=== PATIENT | male | born 2000 | race Two or more races ===

== ENCOUNTER 2023-08-25 05:06 | Emergency (ER) | payer SELFPAY ==
[~2023-08-25] VITALS: Ht 177.8 cm; Wt 59.0 kg
[2023-08-25 05:11] VITALS: O2SAT 97
[2023-08-25 08:45] VITALS: TEMP 97.7
[2023-08-25 08:45] LABS: BASOPHILS % 0.3 % (0.0-2.0); EOSINOPHILS % 0.2 % (0.0-5.0); HEMATOCRIT. 45.6 % (42.0-52.0); HEMOGLOBIN. 15.2 g/dL (14.0-18.0); LYMPHOCYTES % 23.1 % (20.0-50.0); MEAN CORPUSCULAR HEMOGLOBIN 28.4 pg (28.0-32.0); MEAN CORPUSCULAR HGB CONC 33.4 g/dL (31.0-37.0); MEAN CORPUSCULAR VOLUME 85.1 fL (80.0-94.0); MEAN PLATELET VOLUME 8.2 fl (7.4-10.4); MONOCYTES % 6.6 % (2.0-8.0); NEUTROPHILS % 69.8 % (40.0-76.0); PLATELET 265 x1000/uL (130-400); RED BLOOD CELL COUNT 5.35 mill/uL (4.7-6.1); RED CELL DISTRIBUTION WIDTH 14.2 % (11.6-14.6); WHITE BLOOD COUNT 8.2 x1000/uL (4.5-11.0)
[2023-08-25] MEDS: LORAZEPAM 1MG TABLET PO NR (09:00)
[2023-08-25] MEDS: OLANZAPINE 5MG TABLET ODT PO SCH (09:00)
[2023-08-25 09:07] LABS: ALANINE AMINOTRANSFERASE 16 IU/L (10-49); ASPARTATE AMINOTRANSFERASE 21 IU/L (<34); BILIRUBIN TOTAL 0.9 mg/dL (0.1-1.0); CALCIUM 9.8 mg/dL (8.7-10.4); CARBON DIOXIDE 24 mEq/L (21-32); CHLORIDE 105 mEq/L (98-107); CREATININE 0.8 mg/dL (0.6-1.3); GLUCOSE 97 mg/dL (70-105); POTASSIUM 3.8 mEq/L (3.5-5.1); SODIUM 139 mEq/L (136-145); THYROID STIMULATING HORMONE 0.78 uIU/mL (0.55-4.78); UREA NITROGEN BLOOD 10 mg/dL (9-23)
[2023-08-25 09:12] LABS: ETHANOL BLOOD < 10 mg/dL (<10)
[2023-08-25 09:15] LABS: CLARITY URINE CLEAR (CLEAR); COLOR URINE DARK YELLOW (YELLOW); GLUCOSE URINE NEGATIVE (NEGATIVE); KETONES URINE 3+ (NEGATIVE); LEUKOCYTE ESTERASE URINE NEGATIVE (NEGATIVE); NITRITE URINE NEGATIVE (NEGATIVE); OCCULT BLOOD URINE NEGATIVE (NEGATIVE); PROTEIN URINE TRACE (NEGATIVE)
[2023-08-25 09:34] LABS: WBC URINE 0-2 /hpf (0-2)
[2023-08-25 09:35] LABS: BACTERIA URINE FEW; RBC URINE NONE SEEN /hpf (0-2); SQUAMOUS EPITHELIAL CELL URINE RARE /lpf (RARE/1+); YEAST URINE NONE SEEN
[2023-08-25 09:37] LABS: MUCUS URINE 2+ /lpf (NONE/TRACE)
[2023-08-25 10:12] LABS: *AMPHETAMINES SCREEN URINE NEGATIVE (NEGATIVE); *BARBITURATES SCREEN URINE NEGATIVE (NEGATIVE); *BENZODIAZEPINES SCREEN URINE NEGATIVE (NEGATIVE); *COCAINE SCREEN URINE NEGATIVE (NEGATIVE); CANNABINOID URINE SCREEN PRESUMPTIVE POSITIVE (NEGATIVE); ECSTASY MDMA SCREEN URINE NEGATIVE (NEGATIVE); METHADONE URINE SCREEN Neg (NEGATIVE); OPIATES URINE SCREEN NEGATIVE (NEGATIVE); PHENCYCLIDINE URINE SCREEN NEGATIVE (NEGATIVE)
[2023-08-25 18:45] VITALS: BP 119/71; PULSE 86
[2023-08-25 19:00] VITALS: RESP 16
== END 2023-08-25 21:46 | disposition home or self-care (01) ==
LOC: ER 05:06
DX: R45.851 Suicidal ideations (principal); F41.9 Anxiety disorder, unspecified; Z20.822 Contact with and (suspected) exposure to COVID-19
CPT/HCPCS: 36415; 80053; 80305; 80320; 81003; 84443; 85025; 87426; 99285; G0480

== ENCOUNTER 2023-09-12 17:32 | Emergency (ER) | payer SELFPAY ==
[~2023-09-12] VITALS: Ht 180.3 cm; Wt 74.8 kg
[2023-09-12 18:03] VITALS: O2SAT 97
[2023-09-12] MEDS ORDERED: ALPRAZOLAM 0.5 MG TABLET PO ONE (22:00)
[2023-09-12] MEDS: ALPRAZOLAM 0.25 MG TABLET PO NR (22:52)
[2023-09-12] MEDS: DIPHENHYDRAMINE 50MG/ML VIAL IV ONE (23:30)
[2023-09-12] MEDS: ZIPRASIDONE MESYLATE 20MG/VIAL IM ONE (23:38)
[2023-09-12] MEDS: DIPHENHYDRAMINE 50MG/ML VIAL IM ONE (23:38)
[2023-09-13 01:25] LABS: BASOPHILS % 0.2 % (0.0-2.0); EOSINOPHILS % 0.5 % (0.0-5.0); HEMATOCRIT. 41.9 % (42.0-52.0); HEMOGLOBIN. 14.3 g/dL (14.0-18.0); MEAN CORPUSCULAR HEMOGLOBIN 29.1 pg (28.0-32.0); MEAN CORPUSCULAR HGB CONC 34.1 g/dL (31.0-37.0); MEAN CORPUSCULAR VOLUME 85.4 fL (80.0-94.0); MEAN PLATELET VOLUME 7.8 fl (7.4-10.4); MONOCYTES % 9.8 % (2.0-8.0); NEUTROPHILS % 72.5 % (40.0-76.0); PLATELET 210 x1000/uL (130-400); RED BLOOD CELL COUNT 4.91 mill/uL (4.7-6.1); RED CELL DISTRIBUTION WIDTH 14.3 % (11.6-14.6); WHITE BLOOD COUNT 14.1 x1000/uL (4.5-11.0)
[2023-09-13 01:46] LABS: CALCIUM 9.3 mg/dL (8.7-10.4); CARBON DIOXIDE 29 mEq/L (21-32); CHLORIDE 107 mEq/L (98-107); CREATININE 0.8 mg/dL (0.6-1.3); GLUCOSE 94 mg/dL (70-105); POTASSIUM 3.9 mEq/L (3.5-5.1); SODIUM 143 mEq/L (136-145); UREA NITROGEN BLOOD 16 mg/dL (9-23)
[2023-09-13 02:19] LABS: ETHANOL BLOOD < 10 mg/dL (<10)
[2023-09-13 02:41] LABS: *AMPHETAMINES SCREEN URINE NEGATIVE (NEGATIVE); *BARBITURATES SCREEN URINE NEGATIVE (NEGATIVE); *BENZODIAZEPINES SCREEN URINE NEGATIVE (NEGATIVE); *COCAINE SCREEN URINE NEGATIVE (NEGATIVE); CANNABINOID URINE SCREEN PRESUMPTIVE POSITIVE (NEGATIVE); ECSTASY MDMA SCREEN URINE NEGATIVE (NEGATIVE); METHADONE URINE SCREEN Neg (NEGATIVE); OPIATES URINE SCREEN NEGATIVE (NEGATIVE); PHENCYCLIDINE URINE SCREEN NEGATIVE (NEGATIVE)
[2023-09-13 06:13] VITALS: TEMP 97.6
[2023-09-13] MEDS: LORAZEPAM 1MG TABLET PO ONE (06:13)
[2023-09-13 11:00] VITALS: BP 141/75; PULSE 74; RESP 18
[2023-09-13] MEDS ORDERED: GABA-532 MT (11:28)
== END 2023-09-13 11:42 | disposition home or self-care (01) ==
LOC: ER 17:32
DX: F12.10 Cannabis abuse, uncomplicated (principal); F41.0 Panic disorder [episodic paroxysmal anxiety]; R45.1 Restlessness and agitation; J45.909 Unspecified asthma, uncomplicated; Z20.822 Contact with and (suspected) exposure to COVID-19
CPT/HCPCS: 36415; 96372; 99285; 80305; 80048; 80320; 85025; 87426; J1200; J3486; Z7610; G0480

== ENCOUNTER 2023-09-16 08:34 | Emergency (ER) | payer SELFPAY ==
[~2023-09-16] VITALS: Ht 177.8 cm; Wt 74.5 kg
[~2023-09-16 08:34] MED LIST: GABA-532 MT
[2023-09-16 08:43] VITALS: BP 150/99; PULSE 98; RESP 16; TEMP 98.2; O2SAT 100
[2023-09-16 10:15] LABS: CLARITY URINE CLEAR (CLEAR); COLOR URINE YELLOW (YELLOW); GLUCOSE URINE NEGATIVE (NEGATIVE); KETONES URINE TRACE (NEGATIVE); LEUKOCYTE ESTERASE URINE NEGATIVE (NEGATIVE); NITRITE URINE NEGATIVE (NEGATIVE); OCCULT BLOOD URINE NEGATIVE (NEGATIVE); PROTEIN URINE NEGATIVE (NEGATIVE)
== END 2023-09-16 15:17 | disposition left against medical advice (07) ==
LOC: ER 08:34
DX: R07.89 Other chest pain (principal); F41.9 Anxiety disorder, unspecified; J45.909 Unspecified asthma, uncomplicated; F12.10 Cannabis abuse, uncomplicated
CPT/HCPCS: 71045; 81003; 93005; 99285

== ENCOUNTER 2023-09-17 02:35 | Emergency (ER) | payer SELFPAY ==
[~2023-09-17] VITALS: Ht 177.8 cm; Wt 74.0 kg
[2023-09-17 03:04] VITALS: O2SAT 97
[2023-09-17 03:50] LABS: BASOPHILS % 0.2 % (0.0-2.0); EOSINOPHILS % 3.9 % (0.0-5.0); HEMATOCRIT. 39.3 % (42.0-52.0); HEMOGLOBIN. 13.5 g/dL (14.0-18.0); LYMPHOCYTES % 24.3 % (20.0-50.0); MEAN CORPUSCULAR HGB CONC 34.3 g/dL (31.0-37.0); MEAN CORPUSCULAR VOLUME 84.5 fL (80.0-94.0); MONOCYTES % 16.3 % (2.0-8.0); NEUTROPHILS % 55.3 % (40.0-76.0); PLATELET 219 x1000/uL (130-400); RED BLOOD CELL COUNT 4.65 mill/uL (4.7-6.1); RED CELL DISTRIBUTION WIDTH 14.4 % (11.6-14.6); WHITE BLOOD COUNT 6.9 x1000/uL (4.5-11.0)
[2023-09-17 03:51] LABS: CLARITY URINE CLEAR (CLEAR); COLOR URINE YELLOW (YELLOW); GLUCOSE URINE NEGATIVE (NEGATIVE); KETONES URINE NEGATIVE (NEGATIVE); LEUKOCYTE ESTERASE URINE NEGATIVE (NEGATIVE); NITRITE URINE NEGATIVE (NEGATIVE); OCCULT BLOOD URINE NEGATIVE (NEGATIVE); PROTEIN URINE NEGATIVE (NEGATIVE); SPECIFIC GRAVITY URINE 1.018 (1.005-1.030)
[2023-09-17 04:00] LABS: *AMPHETAMINES SCREEN URINE NEGATIVE (NEGATIVE); *BARBITURATES SCREEN URINE NEGATIVE (NEGATIVE); *BENZODIAZEPINES SCREEN URINE NEGATIVE (NEGATIVE); *COCAINE SCREEN URINE NEGATIVE (NEGATIVE); CANNABINOID URINE SCREEN PRESUMPTIVE POSITIVE (NEGATIVE); ECSTASY MDMA SCREEN URINE NEGATIVE (NEGATIVE); METHADONE URINE SCREEN Neg (NEGATIVE); OPIATES URINE SCREEN NEGATIVE (NEGATIVE); PHENCYCLIDINE URINE SCREEN NEGATIVE (NEGATIVE)
[2023-09-17 04:05] LABS: DIFFERENTIAL COMMENT 1
[2023-09-17 04:12] LABS: ACETAMINOPHEN < 2 ug/mL (10-30); ALANINE AMINOTRANSFERASE 24 IU/L (10-49); ALBUMIN 4.6 g/dL (3.2-4.8); ASPARTATE AMINOTRANSFERASE 25 IU/L (<34); BILIRUBIN TOTAL 0.3 mg/dL (0.1-1.0); CALCIUM 9.1 mg/dL (8.7-10.4); CARBON DIOXIDE 27 mEq/L (21-32); CHLORIDE 108 mEq/L (98-107); CREATININE 0.7 mg/dL (0.6-1.3); GLUCOSE 96 mg/dL (70-105); POTASSIUM 3.5 mEq/L (3.5-5.1); PROTEIN TOTAL 7.6 g/dL (6.0-8.3); SODIUM 140 mEq/L (136-145); UREA NITROGEN BLOOD 10 mg/dL (9-23)
[2023-09-17 04:14] LABS: ETHANOL BLOOD < 10 mg/dL (<10)
[2023-09-17] MEDS: LORAZEPAM 1MG TABLET PO ONE (13:00)
[2023-09-17] MEDS: GABAPENTIN 100MG CAPSULE PO SCH (14:00)
[2023-09-18] MEDS ORDERED: DIPHENHYDRAMINE 50MG/ML VIAL IM PRN (20:30)
[2023-09-18] MEDS: LORAZEPAM 2MG/ML INJ IM ONE (20:36)
[2023-09-19] MEDS: DIVALPROEX SODIUM 250MG DR TABLET PO SCH (09:45)
[2023-09-19 17:18] VITALS: BP 94/62; PULSE 98; RESP 17; TEMP 98
== END 2023-09-19 18:11 ==
LOC: ER 02:35
DX: R45.851 Suicidal ideations (principal); F41.9 Anxiety disorder, unspecified; J45.909 Unspecified asthma, uncomplicated; I10 Essential (primary) hypertension; F17.200 Nicotine dependence, unspecified, uncomplicated; Z88.8 Allergy status to other drugs, medicaments and biological substances; Z20.822 Contact with and (suspected) exposure to COVID-19
CPT/HCPCS: 36415; 80053; 80305; 80307; 80320; 80329; 81003; 85025; 87426; 99285; G0480

== ENCOUNTER 2023-12-28 03:07 | Emergency (ER) | payer MEDICAID ==
[~2023-12-28] VITALS: Ht 172.7 cm; Wt 72.0 kg
[2023-12-28 03:18] VITALS: BP 164/108; PULSE 86; RESP 18; TEMP 98.6; O2SAT 98
[2023-12-28] MEDS ORDERED: LORA-250 MT (16:05)
== END 2023-12-28 05:00 | disposition left against medical advice (07) ==
LOC: ER 03:07
DX: F41.9 Anxiety disorder, unspecified (principal); Z53.21 Procedure and treatment not carried out due to patient leaving prior to being seen by health care provider

== ENCOUNTER 2023-12-28 10:03 | Emergency (ER) | payer MEDICAID ==
[~2023-12-28] VITALS: Ht 177.8 cm; Wt 73.0 kg
[2023-12-28 10:13] VITALS: BP 136/75; PULSE 77; RESP 16; TEMP 98.7; O2SAT 98
[2023-12-28] MEDS ORDERED: LORAZEPAM 2MG/ML INJ IV ONE (11:45)
[2023-12-28] MEDS ORDERED: SODIUM CHLORIDE 0.9% 1,000 ML IV ONE (11:45)
[2023-12-28] MEDS ORDERED: LORA-250 MT (16:05)
== END 2023-12-28 12:04 | disposition left against medical advice (07) ==
LOC: ER 10:03
DX: F41.9 Anxiety disorder, unspecified (principal); J45.909 Unspecified asthma, uncomplicated; F32.A Depression, unspecified; I10 Essential (primary) hypertension; F12.90 Cannabis use, unspecified, uncomplicated; Z88.8 Allergy status to other drugs, medicaments and biological substances
CPT/HCPCS: 99281; J7030

== ENCOUNTER 2023-12-28 12:31 | Emergency (ER) | payer MEDICAID ==
[~2023-12-28] VITALS: Ht 177.8 cm; Wt 57.0 kg
[2023-12-28 12:54] VITALS: O2SAT 100
[2023-12-28] MEDS: SODIUM CHLORIDE 0.9% 1,000 ML IV ONE (13:15)
[2023-12-28] MEDS: LORAZEPAM 2MG/ML INJ IV ONE (13:15)
[2023-12-28 14:25] LABS: BASOPHILS % 0.2 % (0.0-2.0); HEMATOCRIT. 42.6 % (42.0-52.0); HEMOGLOBIN. 14.2 g/dL (14.0-18.0); LYMPHOCYTES % 17.1 % (20.0-50.0); MEAN CORPUSCULAR HEMOGLOBIN 28.5 pg (28.0-32.0); MEAN CORPUSCULAR HGB CONC 33.4 g/dL (31.0-37.0); MEAN CORPUSCULAR VOLUME 85.3 fL (80.0-94.0); MEAN PLATELET VOLUME 7.9 fl (7.4-10.4); MONOCYTES % 6.2 % (2.0-8.0); NEUTROPHILS % 75.5 % (40.0-76.0); PLATELET 329 x1000/uL (130-400); RED BLOOD CELL COUNT 4.99 mill/uL (4.7-6.1); RED CELL DISTRIBUTION WIDTH 13.6 % (11.6-14.6); WHITE BLOOD COUNT 11.5 x1000/uL (4.5-11.0)
[2023-12-28 14:46] LABS: CHLORIDE 104 mEq/L (98-107); POTASSIUM 3.5 mEq/L (3.5-5.1); SODIUM 137 mEq/L (136-145)
[2023-12-28 14:48] LABS: CALCIUM 10.2 mg/dL (8.7-10.4); CARBON DIOXIDE 19 mEq/L (21-32)
[2023-12-28 14:53] LABS: CREATININE 0.9 mg/dL (0.6-1.3); GLUCOSE 90 mg/dL (70-105); UREA NITROGEN BLOOD 15 mg/dL (9-23)
[2023-12-28 14:55] LABS: ALANINE AMINOTRANSFERASE 150 IU/L (10-49); ALBUMIN 5.2 g/dL (3.2-4.8); ASPARTATE AMINOTRANSFERASE 50 IU/L (<34); BILIRUBIN DIRECT 0.3 mg/dL (<=3.0)
[2023-12-28 14:56] LABS: BILIRUBIN TOTAL 0.8 mg/dL (0.1-1.0); ETHANOL BLOOD < 10 mg/dL (<10); PROTEIN TOTAL 8.6 g/dL (6.0-8.3)
[2023-12-28] MEDS ORDERED: LORA-250 MT (16:05)
[2023-12-28 16:58] VITALS: BP 124/78; PULSE 76; RESP 16; TEMP 98.4
[2023-12-28 17:10] LABS: CLARITY URINE CLEAR (CLEAR); COLOR URINE DARK YELLOW (YELLOW); GLUCOSE URINE NEGATIVE (NEGATIVE); KETONES URINE 4+ (NEGATIVE); LEUKOCYTE ESTERASE URINE TRACE (NEGATIVE); NITRITE URINE NEGATIVE (NEGATIVE); OCCULT BLOOD URINE NEGATIVE (NEGATIVE); PH URINE 6.5 (4.5-8.0); PROTEIN URINE 1+ (NEGATIVE); SPECIFIC GRAVITY URINE 1.038 (1.005-1.030)
[2023-12-28 17:24] LABS: BACTERIA URINE 1+; RBC URINE NONE SEEN /hpf (0-2); SQUAMOUS EPITHELIAL CELL URINE RARE /lpf (RARE/1+)
[2023-12-28 17:25] LABS: *AMPHETAMINES SCREEN URINE NEGATIVE (NEGATIVE); *BARBITURATES SCREEN URINE NEGATIVE (NEGATIVE); *BENZODIAZEPINES SCREEN URINE NEGATIVE (NEGATIVE); *COCAINE SCREEN URINE NEGATIVE (NEGATIVE); CANNABINOID URINE SCREEN PRESUMPTIVE POSITIVE (NEGATIVE); ECSTASY MDMA SCREEN URINE NEGATIVE (NEGATIVE); METHADONE URINE SCREEN NEGATIVE (NEGATIVE); OPIATES URINE SCREEN NEGATIVE (NEGATIVE); PHENCYCLIDINE URINE SCREEN NEGATIVE (NEGATIVE); WBC URINE 0-2 /hpf (0-2)
== END 2023-12-28 18:07 | disposition home or self-care (01) ==
LOC: ER 12:31
DX: F41.0 Panic disorder [episodic paroxysmal anxiety] (principal); J45.909 Unspecified asthma, uncomplicated; I10 Essential (primary) hypertension; F12.90 Cannabis use, unspecified, uncomplicated; F32.A Depression, unspecified; Z88.8 Allergy status to other drugs, medicaments and biological substances
CPT/HCPCS: 80076; 80305; 80048; 81003; 80320; 85025; 36415; 96361; 96374; 99283; J2060; J7030; Z7610 ×4; G0480

== ENCOUNTER 2023-12-30 16:19 | Emergency (ER) | payer MEDICAID ==
[~2023-12-30] VITALS: Ht 177.8 cm; Wt 75.0 kg
[~2023-12-30 16:19] MED LIST changes: +LORA-250 MT
[2023-12-30 16:22] VITALS: BP 139/90; PULSE 84; RESP 18; TEMP 98.7; O2SAT 100
== END 2023-12-30 17:08 | disposition left against medical advice (07) ==
LOC: ER 16:19
DX: R45.851 Suicidal ideations (principal); Z53.21 Procedure and treatment not carried out due to patient leaving prior to being seen by health care provider

== ENCOUNTER 2023-12-30 20:24 | Emergency (ER) | payer MEDICAID ==
[~2023-12-30] VITALS: Ht 177.8 cm; Wt 75.0 kg
[2023-12-30] MEDS: LORAZEPAM 1MG TABLET PO ONE (21:30)
[2023-12-30 21:50] LABS: BASOPHILS % 0.3 % (0.0-2.0); EOSINOPHILS % 0.2 % (0.0-5.0); HEMATOCRIT. 40.2 % (42.0-52.0); HEMOGLOBIN. 13.6 g/dL (14.0-18.0); LYMPHOCYTES % 14.8 % (20.0-50.0); MEAN CORPUSCULAR HGB CONC 33.8 g/dL (31.0-37.0); MEAN CORPUSCULAR VOLUME 85.9 fL (80.0-94.0); MEAN PLATELET VOLUME 8.3 fl (7.4-10.4); MONOCYTES % 6.6 % (2.0-8.0); NEUTROPHILS % 78.1 % (40.0-76.0); PLATELET 300 x1000/uL (130-400); RED BLOOD CELL COUNT 4.68 mill/uL (4.7-6.1); RED CELL DISTRIBUTION WIDTH 13.4 % (11.6-14.6); WHITE BLOOD COUNT 16.1 x1000/uL (4.5-11.0)
[2023-12-30 21:56] LABS: CHLORIDE 107 mEq/L (98-107); POTASSIUM 3.2 mEq/L (3.5-5.1); SODIUM 141 mEq/L (136-145)
[2023-12-30 21:57] LABS: CARBON DIOXIDE 18 mEq/L (21-32)
[2023-12-30 21:58] LABS: CALCIUM 9.6 mg/dL (8.7-10.4)
[2023-12-30 22:02] LABS: CREATININE 0.9 mg/dL (0.6-1.3); GLUCOSE 82 mg/dL (70-105); UREA NITROGEN BLOOD 12 mg/dL (9-23)
[2023-12-30 22:05] LABS: ETHANOL BLOOD < 10 mg/dL (<10)
[2023-12-30 23:32] LABS: ALANINE AMINOTRANSFERASE 75 IU/L (10-49); ASPARTATE AMINOTRANSFERASE 23 IU/L (<34)
[2023-12-30 23:33] LABS: ALBUMIN 4.7 g/dL (3.2-4.8); BILIRUBIN DIRECT 0.2 mg/dL (<=3.0); BILIRUBIN TOTAL 0.6 mg/dL (0.1-1.0); PROTEIN TOTAL 7.5 g/dL (6.0-8.3)
[2023-12-31] MEDS: HALOPERIDOL LACTATE 5MG/ML VIAL IM ONE
[2023-12-31] MEDS: SODIUM CHLORIDE 0.9% 1,000 ML IV ONE (00:45)
[2023-12-31] MEDS: DIPHENHYDRAMINE 50MG/ML VIAL IM ONE (00:45)
[2023-12-31] MEDS: LORAZEPAM 2MG/ML INJ IM ONE ×2 (00:45)
[2023-12-31 01:10] VITALS: O2SAT 100
[2023-12-31 01:30] LABS: CLARITY URINE CLEAR (CLEAR); COLOR URINE YELLOW (YELLOW); GLUCOSE URINE NEGATIVE (NEGATIVE); KETONES URINE 4+ (NEGATIVE); LEUKOCYTE ESTERASE URINE NEGATIVE (NEGATIVE); NITRITE URINE NEGATIVE (NEGATIVE); OCCULT BLOOD URINE NEGATIVE (NEGATIVE); PH URINE 5.5 (4.5-8.0); PROTEIN URINE 1+ (NEGATIVE)
[2023-12-31 01:42] LABS: *AMPHETAMINES SCREEN URINE NEGATIVE (NEGATIVE); *BARBITURATES SCREEN URINE NEGATIVE (NEGATIVE); *BENZODIAZEPINES SCREEN URINE NEGATIVE (NEGATIVE); *COCAINE SCREEN URINE NEGATIVE (NEGATIVE); ECSTASY MDMA SCREEN URINE NEGATIVE (NEGATIVE); METHADONE URINE SCREEN NEGATIVE (NEGATIVE); OPIATES URINE SCREEN NEGATIVE (NEGATIVE); PHENCYCLIDINE URINE SCREEN NEGATIVE (NEGATIVE)
[2023-12-31 04:40] LABS: BACTERIA URINE TRACE; MUCUS URINE 3+ /lpf (NONE/TRACE); RBC URINE 0-2 /hpf (0-2); SQUAMOUS EPITHELIAL CELL URINE 1+ /lpf (RARE/1+); WBC URINE 0-2 /hpf (0-2)
[2023-12-31] MEDS: POTASSIUM CHLORIDE 20MEQ TABLET SR PO NR (06:26)
[2023-12-31] MEDS: QUETIAPINE FUMARATE 50MG TABLET PO SCH (14:19)
[2024-01-01] MEDS: LORAZEPAM 2MG/ML INJ IM ONE (11:23)
[2024-01-01] MEDS: HALOPERIDOL LACTATE 5MG/ML VIAL IM ONE (11:24)
[2024-01-02] MEDS ORDERED: LORAZEPAM 1MG TABLET PO ONE (17:45)
[2024-01-02] MEDS ORDERED: LORAZEPAM 1MG TABLET PO NR (19:30)
[2024-01-02 20:41] VITALS: BP 144/77; PULSE 98; RESP 20; TEMP 98
== END 2024-01-02 23:10 ==
LOC: ER 20:24
DX: R45.851 Suicidal ideations (principal); F12.10 Cannabis abuse, uncomplicated; I10 Essential (primary) hypertension; J45.909 Unspecified asthma, uncomplicated; Z20.822 Contact with and (suspected) exposure to COVID-19; Z88.8 Allergy status to other drugs, medicaments and biological substances
CPT/HCPCS: 80076; 80305; 80048; 81003; 80320; 85025; 36415; 71045; 99285; 87426; 96360; 96372 ×2; Z7610 ×3; J1200; J1630 ×2; J2060 ×2; J7030; G0480

== ENCOUNTER 2024-01-10 09:18 | Emergency (ER) | payer MEDICAID, OTHER ==
[~2024-01-10] VITALS: Ht 177.8 cm; Wt 66.0 kg
[2024-01-10 09:29] VITALS: BP 117/75; PULSE 100; RESP 18; TEMP 98.1; O2SAT 97
[2024-01-10] MEDS ORDERED: MIRT7.5T11 MT (09:45)
[2024-01-10] MEDS ORDERED: HYDR50TA55 MT (09:45)
[2024-01-10] MEDS: LORAZEPAM 1MG TABLET PO ONE (10:10)
== END 2024-01-10 10:22 | disposition home or self-care (01) ==
LOC: ER 09:56
DX: F41.9 Anxiety disorder, unspecified (principal); R45.851 Suicidal ideations; J45.909 Unspecified asthma, uncomplicated; F31.9 Bipolar disorder, unspecified; Z79.899 Other long term (current) drug therapy
CPT/HCPCS: 99283

== ENCOUNTER 2024-03-03 10:21 | Emergency (ER) | payer MEDICAID ==
[~2024-03-03] VITALS: Ht 177.8 cm; Wt 77.0 kg
[~2024-03-03 10:21] MED LIST changes: +HYDR50TA55 MT; +MIRT7.5T11 MT
[2024-03-03 10:34] VITALS: O2SAT 97
[2024-03-03 11:08] LABS: CLARITY URINE CLEAR (CLEAR); COLOR URINE YELLOW (YELLOW); GLUCOSE URINE NEGATIVE (NEGATIVE); KETONES URINE TRACE (NEGATIVE); LEUKOCYTE ESTERASE URINE NEGATIVE (NEGATIVE); NITRITE URINE NEGATIVE (NEGATIVE); OCCULT BLOOD URINE NEGATIVE (NEGATIVE); PROTEIN URINE NEGATIVE (NEGATIVE); SPECIFIC GRAVITY URINE 1.026 (1.005-1.030); UROBILINOGEN URINE 0.2 E.U./dL (0.2-1.0)
[2024-03-03] MEDS: KETOROLAC 30MG/ML VIAL IM STA (11:25)
[2024-03-03 11:26] LABS: *AMPHETAMINES SCREEN URINE NEGATIVE (NEGATIVE); *BARBITURATES SCREEN URINE NEGATIVE (NEGATIVE); *BENZODIAZEPINES SCREEN URINE NEGATIVE (NEGATIVE); *COCAINE SCREEN URINE NEGATIVE (NEGATIVE); CANNABINOID URINE SCREEN PRESUMPTIVE POSITIVE (NEGATIVE); ECSTASY MDMA SCREEN URINE NEGATIVE (NEGATIVE); METHADONE URINE SCREEN NEGATIVE (NEGATIVE); OPIATES URINE SCREEN NEGATIVE (NEGATIVE); PHENCYCLIDINE URINE SCREEN NEGATIVE (NEGATIVE)
[2024-03-03] MEDS: TETANUS, DIPHTHERIA, PERTUSSIS VAC/PF 0.5ML (>10YR OLD) IM ONE (11:26)
[2024-03-03] MEDS: LIDOCAINE HCL 1% 20ML VIAL INFIL ONE (11:41)
[2024-03-03 11:51] LABS: BASOPHILS % 0.1 % (0.0-2.0); EOSINOPHILS % 0.2 % (0.0-5.0); HEMATOCRIT. 41.9 % (42.0-52.0); HEMOGLOBIN. 13.7 g/dL (14.0-18.0); LYMPHOCYTES % 10.5 % (20.0-50.0); MEAN CORPUSCULAR HEMOGLOBIN 27.6 pg (28.0-32.0); MEAN CORPUSCULAR HGB CONC 32.6 g/dL (31.0-37.0); MEAN CORPUSCULAR VOLUME 84.6 fL (80.0-94.0); MEAN PLATELET VOLUME 8.2 fl (7.4-10.4); MONOCYTES % 4.4 % (2.0-8.0); NEUTROPHILS % 84.8 % (40.0-76.0); PLATELET 273 x1000/uL (130-400); RED BLOOD CELL COUNT 4.95 mill/uL (4.7-6.1); RED CELL DISTRIBUTION WIDTH 13.5 % (11.6-14.6); WHITE BLOOD COUNT 11.6 x1000/uL (4.5-11.0)
[2024-03-03 11:56] LABS: CHLORIDE 109 mEq/L (98-107); POTASSIUM 3.7 mEq/L (3.5-5.1); SODIUM 139 mEq/L (136-145)
[2024-03-03 11:57] LABS: CALCIUM 9.8 mg/dL (8.7-10.4); CARBON DIOXIDE 25 mEq/L (21-32)
[2024-03-03 12:02] LABS: CREATININE 0.7 mg/dL (0.6-1.3); GLUCOSE 108 mg/dL (70-105); UREA NITROGEN BLOOD 13 mg/dL (9-23)
[2024-03-03 12:04] LABS: ACETAMINOPHEN < 2 ug/mL (10-30)
[2024-03-03 12:26] LABS: ETHANOL BLOOD < 10 mg/dL (<10)
[2024-03-03 18:58] VITALS: BP 137/75; PULSE 63; RESP 14; TEMP 36.28068; O2SAT 99
== END 2024-03-03 21:32 | disposition home or self-care (01) ==
LOC: ER 10:21
DX: S51.812A Laceration without foreign body of left forearm, initial encounter (principal); F41.9 Anxiety disorder, unspecified; J45.909 Unspecified asthma, uncomplicated; F31.9 Bipolar disorder, unspecified; Z20.822 Contact with and (suspected) exposure to COVID-19; X83.8XXA Intentional self-harm by other specified means, initial encounter; Y33.XXXA Other specified events, undetermined intent, initial encounter; Y93.89 Activity, other specified; Y92.89 Other specified places as the place of occurrence of the external cause; Y99.8 Other external cause status
CPT/HCPCS: 80305; 80048; 81003; 80307; 80329; 80320; 85025; 36415; 90715; 12002; 90471; 96372; 99285; 87426; J1885; J3490; Z7610 ×4; G0480

== ENCOUNTER 2024-06-01 21:32 | Emergency (ER) | payer MEDICAID ==
[~2024-06-01] VITALS: Ht 177.8 cm; Wt 78.1 kg
[~2024-06-01 21:32] MED LIST changes: +GABA-1180 MT; -GABA-532 MT
[2024-06-01 21:38] VITALS: O2SAT 100
[2024-06-01 21:47] VITALS: BP 146/81; PULSE 85; RESP 18; TEMP 98.6; O2SAT 98
[2024-06-01] MEDS ORDERED: LORAZEPAM 1MG TABLET PO ONE (23:15)
[2024-06-02] MEDS ORDERED: HYDR-3735 PO (00:35)
[2024-06-02] MEDS: LORAZEPAM 1MG TABLET PO NR (01:18)
== END 2024-06-02 02:48 | disposition home or self-care (01) ==
LOC: ER 21:32
DX: F41.9 Anxiety disorder, unspecified (principal); G47.00 Insomnia, unspecified; J45.909 Unspecified asthma, uncomplicated; F31.9 Bipolar disorder, unspecified; Z79.899 Other long term (current) drug therapy
CPT/HCPCS: 99283

== ENCOUNTER 2024-06-22 03:38 | Emergency (ER) | payer MEDICAID ==
[~2024-06-22 03:38] MED LIST changes: +HYDR-3735 PO
[2024-06-22 05:07] LABS: HEMATOCRIT. 45.5 % (42.0-52.0); HEMOGLOBIN. 15.4 g/dL (14.0-18.0); MEAN CORPUSCULAR HEMOGLOBIN 28.2 pg (28.0-32.0); MEAN CORPUSCULAR HGB CONC 33.9 g/dL (31.0-37.0); MEAN CORPUSCULAR VOLUME 83.4 fL (80.0-94.0); MEAN PLATELET VOLUME 8.5 fl (7.4-10.4); PLATELET 245 x1000/uL (130-400); RED BLOOD CELL COUNT 5.46 mill/uL (4.7-6.1); RED CELL DISTRIBUTION WIDTH 14.6 % (11.6-14.6); WHITE BLOOD COUNT 11.4 x1000/uL (4.5-11.0)
[2024-06-22 05:15] LABS: CHLORIDE 104 mEq/L (98-107); POTASSIUM 3.5 mEq/L (3.5-5.1); SODIUM 138 mEq/L (136-145)
[2024-06-22 05:16] LABS: CARBON DIOXIDE 22 mEq/L (21-32)
[2024-06-22 05:17] LABS: DIFFERENTIAL COMMENT 1
[2024-06-22 05:21] LABS: CREATININE 0.8 mg/dL (0.6-1.3); GLUCOSE 109 mg/dL (70-105); UREA NITROGEN BLOOD 15 mg/dL (9-23)
[2024-06-22 05:23] LABS: ACETAMINOPHEN < 2 ug/mL (10-30)
[2024-06-22 05:37] LABS: CLARITY URINE CLEAR (CLEAR); COLOR URINE YELLOW (YELLOW); GLUCOSE URINE NEGATIVE (NEGATIVE); KETONES URINE 3+ (NEGATIVE); LEUKOCYTE ESTERASE URINE NEGATIVE (NEGATIVE); NITRITE URINE NEGATIVE (NEGATIVE); OCCULT BLOOD URINE NEGATIVE (NEGATIVE); PROTEIN URINE NEGATIVE (NEGATIVE); SPECIFIC GRAVITY URINE 1.027 (1.005-1.030)
[2024-06-22 05:52] LABS: ETHANOL BLOOD < 10 mg/dL (<10)
[2024-06-22 06:02] LABS: *AMPHETAMINES SCREEN URINE NEGATIVE (NEGATIVE); *BENZODIAZEPINES SCREEN URINE NEGATIVE (NEGATIVE)
[2024-06-22 06:03] LABS: *BARBITURATES SCREEN URINE NEGATIVE (NEGATIVE); *COCAINE SCREEN URINE NEGATIVE (NEGATIVE); CANNABINOID URINE SCREEN PRESUMPTIVE POSITIVE (NEGATIVE); ECSTASY MDMA SCREEN URINE NEGATIVE (NEGATIVE); METHADONE URINE SCREEN NEGATIVE (NEGATIVE); OPIATES URINE SCREEN NEGATIVE (NEGATIVE); PHENCYCLIDINE URINE SCREEN NEGATIVE (NEGATIVE)
[2024-06-22 06:40] LABS: PLATELET ESTIMATE NORMAL
[2024-06-22] MEDS: ACETAMINOPHEN 325MG TABLET PO ONE (14:30)
[2024-06-22 18:20] VITALS: BP 146/81; PULSE 72; RESP 16; TEMP 36.89184; O2SAT 99
== END 2024-06-22 18:51 ==
LOC: ER 03:49
DX: R45.851 Suicidal ideations (principal); F31.9 Bipolar disorder, unspecified; J45.909 Unspecified asthma, uncomplicated; F41.9 Anxiety disorder, unspecified; Z79.899 Other long term (current) drug therapy; Z20.822 Contact with and (suspected) exposure to COVID-19
CPT/HCPCS: 99285; 87426; 80048; 81003; 80307; 85025; 36415; G0480; 80305; 80320; 80329

== ENCOUNTER 2024-08-02 15:23 | Emergency (ER) | payer MEDICAID ==
[~2024-08-02] VITALS: Ht 182.9 cm; Wt 70.0 kg
[2024-08-02 15:25] VITALS: O2SAT 99
[2024-08-02] MEDS: LORAZEPAM 1MG TABLET PO ONE (16:07)
[2024-08-02 17:24] LABS: BASOPHILS % 0.1 % (0.0-2.0); CHLORIDE 105 mEq/L (98-107); EOSINOPHILS % 0.1 % (0.0-5.0); HEMATOCRIT. 46.9 % (42.0-52.0); HEMOGLOBIN. 15.4 g/dL (14.0-18.0); LYMPHOCYTES % 9.4 % (20.0-50.0); MEAN CORPUSCULAR HEMOGLOBIN 28.6 pg (28.0-32.0); MEAN CORPUSCULAR HGB CONC 32.8 g/dL (31.0-37.0); MEAN CORPUSCULAR VOLUME 87.1 fL (80.0-94.0); MEAN PLATELET VOLUME 8.1 fl (7.4-10.4); MONOCYTES % 3.1 % (2.0-8.0); NEUTROPHILS % 87.3 % (40.0-76.0); PLATELET 252 x1000/uL (130-400); POTASSIUM 3.2 mEq/L (3.5-5.1); RED BLOOD CELL COUNT 5.38 mill/uL (4.7-6.1); RED CELL DISTRIBUTION WIDTH 15.3 % (11.6-14.6); SODIUM 138 mEq/L (136-145); WHITE BLOOD COUNT 11.8 x1000/uL (4.5-11.0)
[2024-08-02 17:25] LABS: CALCIUM 10.1 mg/dL (8.7-10.4); CARBON DIOXIDE 19 mEq/L (21-32)
[2024-08-02 17:30] LABS: CREATININE 0.9 mg/dL (0.6-1.3); GLUCOSE 132 mg/dL (70-105); UREA NITROGEN BLOOD 11 mg/dL (9-23)
[2024-08-02 17:33] LABS: ETHANOL BLOOD < 10 mg/dL (<10)
[2024-08-02 17:46] LABS: *AMPHETAMINES SCREEN URINE NEGATIVE (NEGATIVE); *BARBITURATES SCREEN URINE NEGATIVE (NEGATIVE); *BENZODIAZEPINES SCREEN URINE NEGATIVE (NEGATIVE); *COCAINE SCREEN URINE NEGATIVE (NEGATIVE); CANNABINOID URINE SCREEN PRESUMPTIVE POSITIVE (NEGATIVE); ECSTASY MDMA SCREEN URINE NEGATIVE (NEGATIVE); METHADONE URINE SCREEN NEGATIVE (NEGATIVE); OPIATES URINE SCREEN NEGATIVE (NEGATIVE); PHENCYCLIDINE URINE SCREEN NEGATIVE (NEGATIVE)
[2024-08-02 21:28] VITALS: BP 126/77; PULSE 78; RESP 16; TEMP 36.78072; O2SAT 99
== END 2024-08-02 21:30 | disposition home or self-care (01) ==
LOC: ER 15:23
DX: F41.9 Anxiety disorder, unspecified (principal); F31.9 Bipolar disorder, unspecified; J45.909 Unspecified asthma, uncomplicated; Z79.899 Other long term (current) drug therapy
CPT/HCPCS: 36415; 80048; 80305; 80320; 85025; 99283; 99284; G0480

== ENCOUNTER 2024-08-13 17:46 | Emergency (ER) | payer MEDICAID ==
[2024-08-13] MEDS: TETANUS, DIPHTHERIA, PERTUSSIS VAC/PF 0.5ML (>10YR OLD) IM ONE (18:36)
[2024-08-13] MEDS: LIDOCAINE HCL/EPINEPHRINE 1%-EPI 1:100,000 20ML VIAL INFIL ONE (18:37)
[2024-08-13] MEDS: OLANZAPINE 5MG TABLET ODT PO ONE (18:37)
[2024-08-13 19:29] LABS: CLARITY URINE CLEAR (CLEAR); COLOR URINE YELLOW (YELLOW); GLUCOSE URINE NEGATIVE (NEGATIVE); KETONES URINE 3+ (NEGATIVE); LEUKOCYTE ESTERASE URINE NEGATIVE (NEGATIVE); NITRITE URINE NEGATIVE (NEGATIVE); OCCULT BLOOD URINE NEGATIVE (NEGATIVE); PROTEIN URINE TRACE (NEGATIVE); SPECIFIC GRAVITY URINE 1.031 (1.005-1.030)
[2024-08-13 19:44] LABS: *AMPHETAMINES SCREEN URINE NEGATIVE (NEGATIVE); *BARBITURATES SCREEN URINE NEGATIVE (NEGATIVE); *BENZODIAZEPINES SCREEN URINE NEGATIVE (NEGATIVE); *COCAINE SCREEN URINE NEGATIVE (NEGATIVE); CANNABINOID URINE SCREEN PRESUMPTIVE POSITIVE (NEGATIVE); ECSTASY MDMA SCREEN URINE NEGATIVE (NEGATIVE); METHADONE URINE SCREEN NEGATIVE (NEGATIVE); OPIATES URINE SCREEN NEGATIVE (NEGATIVE); PHENCYCLIDINE URINE SCREEN NEGATIVE (NEGATIVE)
[2024-08-13 20:23] LABS: BACTERIA URINE NONE SEEN; RBC URINE NONE SEEN /hpf (0-2); SQUAMOUS EPITHELIAL CELL URINE FEW /lpf (RARE/1+); WBC URINE 0-2 /hpf (0-2)
[2024-08-14 01:20] LABS: BASOPHILS % 0.2 % (0.0-2.0); EOSINOPHILS % 3.2 % (0.0-5.0); HEMOGLOBIN. 13.5 g/dL (14.0-18.0); LYMPHOCYTES % 39.2 % (20.0-50.0); MEAN CORPUSCULAR HEMOGLOBIN 28.9 pg (28.0-32.0); MEAN CORPUSCULAR HGB CONC 33.8 g/dL (31.0-37.0); MEAN CORPUSCULAR VOLUME 85.3 fL (80.0-94.0); MEAN PLATELET VOLUME 8.3 fl (7.4-10.4); MONOCYTES % 9.5 % (2.0-8.0); NEUTROPHILS % 47.9 % (40.0-76.0); PLATELET 247 x1000/uL (130-400); RED BLOOD CELL COUNT 4.69 mill/uL (4.7-6.1); RED CELL DISTRIBUTION WIDTH 14.9 % (11.6-14.6); WHITE BLOOD COUNT 7.1 x1000/uL (4.5-11.0)
[2024-08-14 01:25] LABS: CHLORIDE 110 mEq/L (98-107); POTASSIUM 3.6 mEq/L (3.5-5.1); SODIUM 141 mEq/L (136-145)
[2024-08-14 01:26] LABS: CALCIUM 9.3 mg/dL (8.7-10.4); CARBON DIOXIDE 25 mEq/L (21-32)
[2024-08-14 01:31] LABS: CREATININE 0.7 mg/dL (0.6-1.3); GLUCOSE 81 mg/dL (70-105); UREA NITROGEN BLOOD 14 mg/dL (9-23)
[2024-08-14 01:33] LABS: ACETAMINOPHEN < 2 ug/mL (10-30)
[2024-08-14 01:49] LABS: ETHANOL BLOOD < 10 mg/dL (<10)
[2024-08-14 03:30] VITALS: TEMP 36.9
[2024-08-14 15:09] VITALS: BP 133/69; PULSE 74; RESP 17; O2SAT 100
== END 2024-08-14 15:27 ==
LOC: ER 17:46
DX: S51.811A Laceration without foreign body of right forearm, initial encounter (principal); S61.511A Laceration without foreign body of right wrist, initial encounter; F20.9 Schizophrenia, unspecified; F31.9 Bipolar disorder, unspecified; F41.9 Anxiety disorder, unspecified; J45.909 Unspecified asthma, uncomplicated; Z79.899 Other long term (current) drug therapy; Z20.822 Contact with and (suspected) exposure to COVID-19; Z59.00 Homelessness unspecified; W45.8XXA Other foreign body or object entering through skin, initial encounter; Y93.89 Activity, other specified; Y92.89 Other specified places as the place of occurrence of the external cause; Y99.8 Other external cause status
CPT/HCPCS: 80305; 81003; 36415; 90715; 12005; 90471; 99285; 80048; 80307; 85025; 87426; Z7610; G0480; 80320; 80329

== ENCOUNTER 2024-10-23 02:00 | Emergency (ER) | payer MEDICAID, OTHER ==
[~2024-10-23] VITALS: Ht 177.8 cm; Wt 77.0 kg
[2024-10-23 02:06] VITALS: O2SAT 97
[2024-10-23 02:27] VITALS: PULSE 106; RESP 22; TEMP 36.5; O2SAT 99
[2024-10-23] MEDS: LORAZEPAM 0.5MG TABLET PO ONE (03:00)
== END 2024-10-23 05:42 | disposition left against medical advice (07) ==
LOC: ER 02:00
DX: F41.9 Anxiety disorder, unspecified (principal); R06.02 Shortness of breath
CPT/HCPCS: 71045; 93005; 99283

== ENCOUNTER 2024-10-24 10:44 | Emergency (ER) | payer OTHER ==
[~2024-10-24] VITALS: Ht 175.3 cm; Wt 57.0 kg
[2024-10-24 10:46] VITALS: O2SAT 96
[2024-10-24 11:43] LABS: CLARITY URINE CLEAR (CLEAR); COLOR URINE YELLOW (YELLOW); GLUCOSE URINE NEGATIVE (NEGATIVE); KETONES URINE 2+ (NEGATIVE); LEUKOCYTE ESTERASE URINE TRACE (NEGATIVE); NITRITE URINE NEGATIVE (NEGATIVE); OCCULT BLOOD URINE NEGATIVE (NEGATIVE); PH URINE 5.5 (4.5-8.0); PROTEIN URINE NEGATIVE (NEGATIVE); SPECIFIC GRAVITY URINE 1.024 (1.005-1.030)
[2024-10-24 11:49] LABS: CHLORIDE 104 mEq/L (98-107); POTASSIUM 3.8 mEq/L (3.5-5.1); SODIUM 138 mEq/L (136-145)
[2024-10-24 11:50] LABS: BASOPHILS % 0.2 % (0.0-2.0); CARBON DIOXIDE 26 mEq/L (21-32); EOSINOPHILS % 3.2 % (0.0-5.0); HEMATOCRIT. 48.5 % (42.0-52.0); HEMOGLOBIN. 15.9 g/dL (14.0-18.0); LYMPHOCYTES % 23.8 % (20.0-50.0); MEAN CORPUSCULAR HEMOGLOBIN 28.2 pg (28.0-32.0); MEAN CORPUSCULAR HGB CONC 32.8 g/dL (31.0-37.0); MEAN CORPUSCULAR VOLUME 85.9 fL (80.0-94.0); MEAN PLATELET VOLUME 8.3 fl (7.4-10.4); MONOCYTES % 7.1 % (2.0-8.0); NEUTROPHILS % 65.7 % (40.0-76.0); PLATELET 254 x1000/uL (130-400); RED BLOOD CELL COUNT 5.65 mill/uL (4.7-6.1); RED CELL DISTRIBUTION WIDTH 14.2 % (11.6-14.6); WHITE BLOOD COUNT 8.4 x1000/uL (4.5-11.0)
[2024-10-24 11:55] LABS: CREATININE 0.8 mg/dL (0.6-1.3); GLUCOSE 103 mg/dL (70-105); UREA NITROGEN BLOOD 17 mg/dL (9-23)
[2024-10-24 11:57] LABS: ACETAMINOPHEN < 2 ug/mL (10-30)
[2024-10-24 12:23] LABS: *AMPHETAMINES SCREEN URINE PRESUMPTIVE POSITIVE (NEGATIVE); *BARBITURATES SCREEN URINE NEGATIVE (NEGATIVE); *BENZODIAZEPINES SCREEN URINE NEGATIVE (NEGATIVE); *COCAINE SCREEN URINE NEGATIVE (NEGATIVE); CANNABINOID URINE SCREEN PRESUMPTIVE POSITIVE (NEGATIVE); METHADONE URINE SCREEN NEGATIVE (NEGATIVE); OPIATES URINE SCREEN NEGATIVE (NEGATIVE); PHENCYCLIDINE URINE SCREEN NEGATIVE (NEGATIVE)
[2024-10-24 12:24] LABS: ECSTASY MDMA SCREEN URINE NEGATIVE (NEGATIVE)
[2024-10-24] MEDS ORDERED: LORAZEPAM 2MG/ML INJ IM ONE (12:30)
[2024-10-24] MEDS: OLANZAPINE 10 MG/VIAL IM ONE (12:30)
[2024-10-24 12:35] LABS: MUCUS URINE 4+ /lpf (NONE/TRACE)
[2024-10-24 12:38] LABS: BACTERIA URINE TRACE; RBC URINE 0-2 /hpf (0-2); SQUAMOUS EPITHELIAL CELL URINE RARE /lpf (RARE/1+); WBC URINE 0-2 /hpf (0-2)
[2024-10-24] MEDS: LORAZEPAM 2MG/ML UD SYRINGE IM NR (12:45)
[2024-10-25 10:01] VITALS: BP 124/72; PULSE 65; RESP 16; TEMP 37.1; O2SAT 100
[2024-10-26 08:08] LABS: LITHIUM SERUM < 0.1 mmol/L (0.5-1.2)
== END 2024-10-25 10:42 | disposition home or self-care (01) ==
LOC: ER 10:44
DX: R45.1 Restlessness and agitation (principal); F31.9 Bipolar disorder, unspecified; F41.9 Anxiety disorder, unspecified; J45.909 Unspecified asthma, uncomplicated; F15.90 Other stimulant use, unspecified, uncomplicated; Z20.822 Contact with and (suspected) exposure to COVID-19; Z79.899 Other long term (current) drug therapy
CPT/HCPCS: 80305; 80048; 81003; 80307; 80329; 85025; 36415; 96372; 99285; 80178; 87426; 80320; J3490; J2060; G0480

== ENCOUNTER 2024-12-01 08:32 | Emergency (ER) | payer MEDICAID, OTHER ==
[~2024-12-01] VITALS: Ht 177.8 cm; Wt 65.0 kg
[2024-12-01 08:44] VITALS: O2SAT 100
[2024-12-01 09:22] VITALS: PULSE 72; RESP 20
[2024-12-01] MEDS: ALBUTEROL (0.083%) 2.5MG/3ML NEB HHN ONE (09:22)
[2024-12-01] MEDS: LORAZEPAM 0.5MG TABLET PO ONE (09:26)
[2024-12-01 10:23] LABS: BASOPHILS % 0.1 % (0.0-2.0); EOSINOPHILS % 1.1 % (0.0-5.0); HEMATOCRIT. 44.7 % (42.0-52.0); HEMOGLOBIN. 14.6 g/dL (14.0-18.0); LYMPHOCYTES % 21.2 % (20.0-50.0); MEAN CORPUSCULAR HEMOGLOBIN 27.5 pg (28.0-32.0); MEAN CORPUSCULAR HGB CONC 32.7 g/dL (31.0-37.0); MEAN CORPUSCULAR VOLUME 84.2 fL (80.0-94.0); MEAN PLATELET VOLUME 8.5 fl (7.4-10.4); NEUTROPHILS % 71.6 % (40.0-76.0); PLATELET 240 x1000/uL (130-400); RED BLOOD CELL COUNT 5.31 mill/uL (4.7-6.1); RED CELL DISTRIBUTION WIDTH 13.9 % (11.6-14.6); WHITE BLOOD COUNT 8.3 x1000/uL (4.5-11.0)
[2024-12-01 10:36] LABS: CARBON DIOXIDE 24 mEq/L (21-32); CHLORIDE 105 mEq/L (98-107); POTASSIUM 3.4 mEq/L (3.5-5.1); SODIUM 141 mEq/L (136-145)
[2024-12-01 10:37] LABS: CALCIUM 9.8 mg/dL (8.7-10.4)
[2024-12-01 10:41] LABS: CREATININE 0.8 mg/dL (0.6-1.3)
[2024-12-01 10:42] LABS: ETHANOL BLOOD < 10 mg/dL (<10); GLUCOSE 124 mg/dL (70-105); UREA NITROGEN BLOOD 11 mg/dL (9-23)
[2024-12-01 10:43] LABS: ACETAMINOPHEN < 2 ug/mL (10-30); ALANINE AMINOTRANSFERASE 16 IU/L (10-49); ALBUMIN 4.8 g/dL (3.2-4.8); ASPARTATE AMINOTRANSFERASE 15 IU/L (<34)
[2024-12-01 10:44] LABS: BILIRUBIN DIRECT 0.2 mg/dL (<=3.0); BILIRUBIN TOTAL 0.8 mg/dL (0.1-1.0); PROTEIN TOTAL 7.8 g/dL (6.0-8.3)
[2024-12-01 13:05] VITALS: BP 122/70; PULSE 76; RESP 20; TEMP 36.7; O2SAT 100
== END 2024-12-01 13:06 ==
LOC: ER 08:44
DX: F41.0 Panic disorder [episodic paroxysmal anxiety] (principal); F31.9 Bipolar disorder, unspecified; F15.10 Other stimulant abuse, uncomplicated; J45.909 Unspecified asthma, uncomplicated; Z79.899 Other long term (current) drug therapy
CPT/HCPCS: 80076; 80048; 80307; 80329; 80320; 85025; 36415; 94640; 99283; Z7610 ×3; 94070; G0480

== ENCOUNTER 2024-12-01 13:48 | Emergency (ER) | payer MEDICAID, OTHER ==
[~2024-12-01] VITALS: Ht 177.8 cm; Wt 69.0 kg
[2024-12-01 13:56] VITALS: O2SAT 99
[2024-12-01 14:33] LABS: CLARITY URINE TURBID (CLEAR); COLOR URINE YELLOW (YELLOW); GLUCOSE URINE NEGATIVE (NEGATIVE); KETONES URINE 4+ (NEGATIVE); LEUKOCYTE ESTERASE URINE NEGATIVE (NEGATIVE); NITRITE URINE NEGATIVE (NEGATIVE); OCCULT BLOOD URINE NEGATIVE (NEGATIVE); PROTEIN URINE NEGATIVE (NEGATIVE); SPECIFIC GRAVITY URINE 1.019 (1.005-1.030)
[2024-12-01 14:47] LABS: AMORPHOUS SEDIMENT URINE 2+ /lpf
[2024-12-01 14:48] LABS: BACTERIA URINE 1+; SQUAMOUS EPITHELIAL CELL URINE NONE SEEN /lpf (RARE/1+)
[2024-12-01 14:49] LABS: *AMPHETAMINES SCREEN URINE NEGATIVE (NEGATIVE); *BARBITURATES SCREEN URINE NEGATIVE (NEGATIVE); *BENZODIAZEPINES SCREEN URINE NEGATIVE (NEGATIVE); *COCAINE SCREEN URINE NEGATIVE (NEGATIVE); METHADONE URINE SCREEN NEGATIVE (NEGATIVE); RBC URINE NONE SEEN /hpf (0-2); WBC URINE 0-2 /hpf (0-2)
[2024-12-01 14:50] LABS: CANNABINOID URINE SCREEN PRESUMPTIVE POSITIVE (NEGATIVE); ECSTASY MDMA SCREEN URINE NEGATIVE (NEGATIVE); OPIATES URINE SCREEN NEGATIVE (NEGATIVE); PHENCYCLIDINE URINE SCREEN NEGATIVE (NEGATIVE)
[2024-12-01 15:02] LABS: BASOPHILS % 0.2 % (0.0-2.0); EOSINOPHILS % 0.4 % (0.0-5.0); HEMATOCRIT. 42.4 % (42.0-52.0); HEMOGLOBIN. 14.3 g/dL (14.0-18.0); LYMPHOCYTES % 18.1 % (20.0-50.0); MEAN CORPUSCULAR HGB CONC 33.8 g/dL (31.0-37.0); MEAN CORPUSCULAR VOLUME 82.9 fL (80.0-94.0); MEAN PLATELET VOLUME 8.4 fl (7.4-10.4); MONOCYTES % 5.7 % (2.0-8.0); NEUTROPHILS % 75.6 % (40.0-76.0); PLATELET 217 x1000/uL (130-400); RED BLOOD CELL COUNT 5.12 mill/uL (4.7-6.1); RED CELL DISTRIBUTION WIDTH 13.7 % (11.6-14.6); WHITE BLOOD COUNT 8.4 x1000/uL (4.5-11.0)
[2024-12-01 15:10] LABS: CHLORIDE 106 mEq/L (98-107); POTASSIUM 3.7 mEq/L (3.5-5.1); SODIUM 140 mEq/L (136-145)
[2024-12-01 15:11] LABS: CARBON DIOXIDE 26 mEq/L (21-32)
[2024-12-01 15:12] LABS: CALCIUM 9.5 mg/dL (8.7-10.4)
[2024-12-01 15:16] LABS: CREATININE 0.7 mg/dL (0.6-1.3); GLUCOSE 138 mg/dL (70-105); UREA NITROGEN BLOOD 10 mg/dL (9-23)
[2024-12-01 15:17] LABS: ETHANOL BLOOD < 10 mg/dL (<10)
[2024-12-01] MEDS: LORAZEPAM 0.5MG TABLET PO ONE (20:54)
[2024-12-02] MEDS: OLANZAPINE 5MG TABLET ODT PO SCH (09:00)
[2024-12-03 21:26] VITALS: BP 135/83; PULSE 60; RESP 16; TEMP 37.1; O2SAT 100
== END 2024-12-03 22:00 | disposition short-term general hospital (02) ==
LOC: ER 13:48
DX: F31.9 Bipolar disorder, unspecified (principal); F41.9 Anxiety disorder, unspecified; J45.909 Unspecified asthma, uncomplicated; F12.90 Cannabis use, unspecified, uncomplicated; F15.90 Other stimulant use, unspecified, uncomplicated; Z79.899 Other long term (current) drug therapy; Z20.822 Contact with and (suspected) exposure to COVID-19
CPT/HCPCS: 36415; 80048; 80305; 80307; 80320; 80329; 81003; 85025; 87426; 99285; G0480

== ENCOUNTER 2025-01-21 13:27 | Emergency (ER) | payer MEDICAID ==
[~2025-01-21] VITALS: Ht 177.8 cm; Wt 80.0 kg
[2025-01-21 13:30] VITALS: O2SAT 98
[2025-01-21 13:37] VITALS: BP 122/78; PULSE 65; RESP 18; TEMP 36.9; O2SAT 100
== END 2025-01-21 15:49 | disposition left against medical advice (07) ==
LOC: ER 13:27
DX: F41.9 Anxiety disorder, unspecified (principal); J45.909 Unspecified asthma, uncomplicated; F31.9 Bipolar disorder, unspecified; Z53.21 Procedure and treatment not carried out due to patient leaving prior to being seen by health care provider